=== PATIENT | male | born 1980 | race African-American/Black ===

== ENCOUNTER 2019-09-12 17:26 | Emergency (ER) | payer SELFPAY ==
[2019-09-12 17:44] VITALS: BP 136/92
--- NOTE | 2019-09-12 18:04 | UC ---
UC General HPI - HPI Summary HPI Summary: Earlier today he had a left frontal fullness and headache feeling and felt dizzy. Symptoms have completely resolved at this point. He became concerned and decided to come to the [facility] and when he went outside the symptoms went away. - History of Current Complaint Chief Complaint: UCGeneralIllness Stated Complaint: SINUS PRESSURE AND PAIN Time Seen by Provider: 09/12/19 17:59 Hx Obtained From: Patient Onset/Duration: Sudden Onset, Lasting Minutes Onset Severity: Moderate Current Severity: None Pain Intensity: 0 - Allergy/Home Medications Allergies/Adverse Reactions: Allergies Allergy/AdvReac Type Severity Reaction Status Date / Time No Known Allergies Allergy Verified 09/12/19 17:45 Home Medications: Home Medications Aspirin 81 mg CHEW TAB* [Aspirin Low Dose TAB*] 81 mg PO ONCE 09/12/19 [History Confirmed 09/12/19] Ibuprofen TAB* [Motrin TAB* 400 MG] 400 mg PO Q6H PRN 09/12/19 [History Confirmed 09/12/19] LoraTADine TAB(NF) [Claritin 10 MG TAB(NF)] 10 mg PO ONCE 09/12/19 [History Confirmed 09/12/19] PMH/Surg Hx/FS Hx/Imm Hx Previously Healthy: Yes - Surgical History Surgical History: None - Social History Alcohol Use: Weekly Substance Use Type: None Smoking Status (MU): Never Smoked Tobacco Review of Systems All Other Systems Reviewed And Are Negative: Yes Constitutional: Positive: Negative Skin: Positive: Other - He has a cyst above his left eye which she has had for years. Coincidentally he has an appointment to have it checked out in [place] tomorrow by a specialist. Eyes: Positive: Negative ENT: Positive: Negative Respiratory: Positive: Negative Cardiovascular: Positive: Negative Motor: Positive: Negative Neurovascular: Positive: Negative Musculoskeletal: Positive: Negative Neurological: Positive: Headache - He felt a little bit dizzy which he describes as off balance., Other Psychological: Positive: Anxious Physical Exam - Summary Physical Exam Summary: He is nontoxic in appearance with stable vitals. Triage Information Reviewed: Yes Appearance: Well-Appearing, No Pain Distress Vital Signs: Initial Vital Signs Temp 99.8 F 09/12/19 17:41 Pulse 98 09/12/19 17:41 Resp 16 09/12/19 17:41 BP 136/92 09/12/19 17:41 Pulse Ox 100 09/12/19 17:41 Vital Signs Reviewed: Yes Eye Exam: Normal ENT Exam: Normal Neck exam: Normal Respiratory Exam: Normal Cardiovascular Exam: Normal Neurological Exam: Normal Skin Exam: Other - There is a small cyst above his left eye Course/Dx - Course Course Of Treatment: I'm not sure what happened. His blood pressure is slightly elevated. It's possible that has been more elevated earlier today. He states that he a lot of seeds that were salted and thinks he took him much more salt than it normally does. I encouraged him to follow-up tomorrow with an appointment and to return for any problems. - Diagnoses Provider Diagnosis: Headache Discharge ED - Sign-Out/Discharge Documenting (check all that apply): Patient Departure All imaging exams completed and their final reports reviewed: No Studies - Discharge Plan Condition: Stable Disposition: HOME Patient Education Materials: Hypertension (ED) Referrals: No Primary Care Phys,NOPCP [Primary Care Provider] - Additional Instructions: Please keep your appointment with the physician tomorrow - Billing Disposition and Condition Condition: STABLE Disposition: Home
== END 2019-09-12 18:13 | disposition home or self-care (01) ==
LOC: UCEAST 17:26
DX: R51 Headache (principal); H57.89 Other specified disorders of eye and adnexa; Z79.82 Long term (current) use of aspirin
CPT/HCPCS: 99201; G0463